=== PATIENT | male | born 2000 ===

== ENCOUNTER 2024-05-26 13:08 | Emergency (ER) | payer MEDICAID, SELFPAY ==
--- NOTE | ~2024-05-26 | XR_ITS ---
EXAMINATION: XR CHEST 2 VIEWS CLINICAL INFORMATION: cough COMPARISON: No prior chest x-ray available in our system for comparison at the time of this dictation. TECHNIQUE: XR CHEST 2 VIEWS, 2 Views Lungs and Henny: Both lungs are clear. Pleura: Normal. Costophrenic angles are sharp. No pneumothorax. Heart and mediastinum: The heart is normal in size. Bones and soft tissue: No acute changes XR/XR chest 2V IMPRESSION: No radiographic evidence of acute cardiopulmonary disease. Electronically signed by: Lai Sheldon MD 05/26/2024 01:56 PM EST
[2024-05-26 13:27] VITALS: BP 139/64; PULSE 66; RESP 20; TEMP 36.6; O2SAT 99; BMI 28.3
--- NOTE | 2024-05-26 13:27 | ED_ITS ---
HPI - General Adult General Chief complaint: General Medical Stated complaint: not feeling well Time Seen by Provider: 05/26/24 14:03 Source: patient Mode of arrival: ambulatory Limitations: language barrier (Croatian speaking voice interpreting services utilized) History of Present Illness ED Provider: Queenie Lowery NP HPI narrative: Patient is a 23-year-old male who presents emergency department for evaluation of many different complaints. He states that he does not have a primary care doctor he typically only seeks evaluation in an emergency department when necessary. He reports that he experienced a headache while at work yesterday, he is working at a [employer] style facility where he does engage in lifting of the approximately 10-15 minute lb which is new exercise for him. He was evaluated by a nurse at work yesterday when he was experiencing a headache, reportedly his blood pressure was elevated but not certain what this number was. He denies any vision changes, dizziness or lightheadedness, neck pain or neck stiffness. He reports that he went to a local emergency department does not recall the name of which one, he was treated for his headache ?with some medicine? and he was discharged home. He states he has been having an intermittently productive cough and a sore throat over the past few days. Endorses having pain to the back, ?in my kidney area? however when asking he points to different parts of his entire back from the shoulder down to the pelvis on both sides reporting that the pain moves all over. Denies any precipitating injury. He denies dysuria, hematuria, bladder bowel dysfunction, saddle paresthesias, numbness or tingling to the lower extremities. Also he feels as though he has gained approximately 20 kg over the past 4-5 months without changes in his appetite. Denies any nausea vomiting abdominal pain. Related Data Allergies Allergy/AdvReac Type Severity Reaction Status Date / Time No Known Allergies Allergy Verified 05/26/24 13:34 Review of Systems 2 Review of Systems: Yes all other systems are reviewed and are negative PMFSH Past Medical History Attestation statement: The following information was validated with the patient. Source: old records reviewed Social History Social History Advance Directives: No Advance Directives Information Provided: Yes Do you have a plan to hurt others: No Plan Physical Exam ED Vital Signs: Vital Signs - 24 hr 05/26/24 13:27 05/26/24 16:08 05/26/24 16:24 Temperature 97.9 F 96.9 F 96.9 F Pulse Rate 66 54 54 Respiratory Rate 20 16 16 Blood Pressure 139/64 115/43 L 115/43 L Pulse Oximetry 99 100 100 Oxygen Delivery Method Room Air Room Air Room Air BMI result Body Mass Index 28.3 Appearance: Alert.?Oriented to person, place and time. No acute distress.?Normal affect. Eyes: Pupils equal, round and reactive to light.? EOMI. No nystagmus. ENT: Pharynx normal.? TM normal bilaterally. ? Neck: Normal inspection.? Neck supple.??Full range of motion. No nuchal rigidity. No cervical adenopathy. CVS: Heart sounds normal. Normal heart rate and rhythm.? Pulses normal.?? Respiratory: No respiratory distress.? Lung sounds clear to auscultation bilaterally?? Abdomen: Soft and non-tender. Normoactive bowel sounds. No CVAT. Back: Currently asymptomatic without back pain, no point tenderness, no paraspinal muscle tenderness. Skin: Skin warm and dry.? Normal skin color.? ?? Extremities: No lower extremity edema.? No calf ttp? Neuro: Moves all extremities spontaneously. Sensation intact bilaterally. CN II- XII intact. No focal neuro deficits. Ambulates with normal steady gait. Course Course Course Narrative: This is a Rapid Medical Examination (RME) performed by Denilson Hurley PA-C in triage. Full HPI, ROS, assessment and treatment plan per primary provider in the Main ED. 23 yo Croatian speaking male here with multiple complaints. reports RIBEIRO at work yesterday - states he was seen by the nurse at work who noted elevated BP. he was seen at a different hospital last night, was treated for his RIBEIRO, and discharged home. endorses productive cough and sore throat. also admits to low back pain in my kidney area , worse with sitting. no saddle anesthesia, bowel/ bladder incontinence or retention, numbness/tingling/weakness of the LE. no chest pain, sob, vision changes. Plan: labs, viral swabs, UA, further evaluation Medications Administered Discontinued Medications Generic Name Dose Route Start Last Admin Trade Name Freq PRN Reason Stop Dose Admin Acetaminophen 975 mg 05/26/24 15:19 05/26/24 15:28 Acetaminophen 325 Mg Tablet PO 05/26/24 15:20 975 mg ONCE ONE Administration Ibuprofen 600 mg 05/26/24 15:19 05/26/24 15:28 Ibuprofen 600 Mg Tablet PO 05/26/24 15:20 600 mg ONCE ONE Administration Medical Decision Making Medical Decision Making [facility] Narrative: Patient is a 23-year-old male with no reported past medical history presenting to emergency department for evaluation of numerous complaints as per HPI. Most recently has been experiencing a headache, cough, sore throat as per HPI, reported elevated blood pressure reading while at work yesterday though no evidence of this here. He has no focal neurological deficits on examination. Clinically have low suspicion for ICH, CVA, is not hypertensive now, would defer CT imaging of the brain at this time. LS CTA, no respiratory distress, no hypoxia tachypnea, dry nonproductive cough will obtain CXR to evaluate for consolidation/infiltrate/mass. 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 You also expressed concern about intermittent back pain, upon his description varies at different locations of his back currently without any symptoms no point tenderness no obvious precipitating trauma on exam no concern for cauda equina syndrome. Did discuss with patient this may be musculoskeletal in nature as he is doing lifting and activity at work that his body is not typically use do. He also reports concern about weight gain of approximately 20 kg over the past 4-5 months, is not on any new medications that may have brought this on, on examination does not appear to have obvious signs of fluid retention/edema or overload. He denies overt dietary changes. He has had many ailments that he describes over the past 10 years which he has not sought evaluation for does not have a primary care doctor, did discuss with him the importance of establishing care with a primary care doctor locally for further evaluation and workup of ongoing concerns. Will obtain CBC to evaluate for leukocytosis/ anemia, CMP and lipase to evaluate for abnormal electrolytes /abnormal renal function/ abnormal hepatic/biliary function, TSH and free T4 to evaluate for abnormal thyroid function, viral serologies, and Urinalysis. Differential Diagnosis Differential Diagnoses: The differential diagnosis associated with the presentation includes Admission/Observation Consideration of admission/observation: Escalation of care including admission/observation considered Lab Data [facility] Lab Attestation statement: I reviewed the patient's lab results. 05/26/24 14:11 05/26/24 14:11 Labs: Lab Results 11/30/24 11/30/24 Range/Units 14:11 14:57 WBC 6.1 (4.8-10.8) X10*3/uL RBC 4.60 (4.60-5.80) X10*6/uL Hgb 14.2 (14.0-18.0) g/dl Hct 43.9 (42.0-52.0) % MCV 95.4 (80.0-98.0) fL MCH 30.9 (27.0-33.0) pg MCHC 32.3 (31.0-36.0) g/dl RDW 11.9 (11.0-16.0) % Plt Count 319 (160-400) X10*3/uL MPV 8.9 L (9.4-12.4) fL Immature Gran % (Auto) 0.5 H (0.0-0.4) % Neut % (Auto) 54.7 (45-73) % Lymph % (Auto) 33.9 (20-40) % [place] % (Auto) 6.5 (2-11) % Eos % (Auto) 4.1 H (0-4) % Baso % (Auto) 0.3 (0-2) % Lymph # (Auto) 2.1 (1.2-4.9) X10*3/uL Randolph # (Auto) 0.4 (0.1-1.2) X10*3/uL Eos # (Auto) 0.3 (0.0-0.4) X10*3/uL Baso # (Auto) 0.0 (0.0-0.2) X10*3/uL Abs Immat Gran (auto) 0.03 (0.00-0.03) X10*3/uL Absolute Neuts (auto) 3.4 (2.0-8.3) x10*3/uL Absolute Nucleated RBC 0.000 (0.0-0.012) X10*3/uL Nucleated RBC % (auto) 0.0 (0.0-0.2) /100WBC Sodium 143 (135-145) mmol/L Potassium 4.1 (3.3-5.1) mmol/L Chloride 109 H (96-108) mmol/L Carbon Dioxide 25 (22-29) mmol/L Anion Gap 13 (12-20) BUN 16 (9-16) mg/dL Creatinine 0.97 (0.5-1.4) mg/dL Estim Creat Clear Calc 143.7 Estimated GFR > 60 Random Glucose 101 (60-115) mg/dL Calcium 9.4 (8.4-10.2) mg/dL Magnesium 2.0 (1.6-2.6) mg/dL Total Bilirubin 0.3 (0.0-1.0) mg/dL AST 18 (5-37) U/L ALT 15 (0-40) U/L Alkaline Phosphatase 125 H (39-117) U/L Total Protein 7.0 (6.5-8.0) g/dL Albumin 4.1 (3.5-5.0) g/dL TSH 0.71 (0.32-4.0) uIU/mL Urine Color Yellow Urine Appearance Clear Urine pH 7.0 (5.0-9.0) Ur Specific [place] 1.025 (1.005-1.025) Urine Protein Negative (Neg-Trace) mg/dL Urine Glucose (UA) Negative (Negative) mg/dL Urine Ketones Negative (Negative) mg/dL Urine Blood Negative (Negative) Urine Nitrite Negative (Negative) Ur Leukocyte Esterase Negative (Negative) Influenza Type A (PCR) NEGATIVE (Negative) Influenza Type B (PCR) NEGATIVE (Negative) RSV RNA Qual (PCR) NEGATIVE (Negative) SARS-CoV-2 RNA (RT-PCR) NEGATIVE (Negative) S. pyogenes GrpA NIMO Negative (Negative) Independent Interpretation I performed an independent interpretation of an: Plain X-Ray (Chest x-ray without consolidation or infiltrate) Radiology Impression Discussion of test interpretation with radiology: I have reviewed the radiologist's reading. Radiologist Impression: XR/XR chest 2V IMPRESSION: No radiographic evidence of acute cardiopulmonary disease. Tests considered The following testing was considered but not selected: See narrative above Discharge Plan Discharge Clinical Impression: Acute viral syndrome Patient Disposition: Home, Self-Care Instructions: Viral Syndrome (ED) Additional Instructions: Your most recent symptoms of cough, sore throat, congestion, headache and body aches are likely due to a viral type infection. The treatment for this is symptomatic treatment. Antibiotics will not improve these symptoms. Be sure to rest, stay well hydrated drinking plenty of fluids, eat small frequent meals. You can take ibuprofen 200 mg, 3 tablets (600mg) every 6-8 hours as needed for pain, in addition to Tylenol 500 mg, 2 tablets (1,000mg) every 4-6 hours as needed for pain, but not to exceed 3 doses daily (3,000mg).? [id number] cold medications may be helpful as well for symptoms. Saline nasal spray, humidifier may be helpful for nasal congestion. You had blood work done today which was very reassuring, he has not have an elevated white blood cell count which is a marker use for certain types of infection, you are not anemic, your electrolytes were normal, your kidney function is normal, your liver function is normal, your thyroid function is normal, your urine does not show evidence of infection. You expressed concern about many ongoing chronic ailments during your visit today, I highly recommend that you establish care with a primary care doctor for further outpatient workup and evaluation. You may return to the emergency department with any new or worsening symptoms or concerns. Stand Alone Forms: Work/School Release Interventions: ED Discharge Assessment Last Done: 05/26/24 16:24 Discharge Date/Time: 05/26/24 16:25 Print Language: Croatian
[2024-05-26 14:20] LABS: MANUAL DIFF FLAG NO
[2024-05-26 14:23] LABS: Basophils Percent Auto 0.3 % (0-2); Eosinophils Absolute Auto 0.3 X10*3/uL (0.0-0.4); Eosinophils Percent Auto 4.1 % (0-4); Hematocrit 43.9 % (42.0-52.0); Hemoglobin 14.2 g/dl (14.0-18.0); Imm Gran Abs Auto 0.03 X10*3/uL (0.00-0.03); Imm Gran Pct Auto 0.5 % (0.0-0.4); Lymphocytes Absolute Auto 2.1 X10*3/uL (1.2-4.9); Lymphocytes Percent Auto 33.9 % (20-40); Mean Corpuscular HGB Conc 32.3 g/dl (31.0-36.0); Mean Corpuscular Hemoglobin 30.9 pg (27.0-33.0); Mean Corpuscular Volume 95.4 fL (80.0-98.0); Mean Platelet Volume 8.9 fL (9.4-12.4); Monocytes Absolute Auto 0.4 X10*3/uL (0.1-1.2); Monocytes Percent Auto 6.5 % (2-11); Neutrophils Absolute Auto 3.4 x10*3/uL (2.0-8.3); Neutrophils Percent Auto 54.7 % (45-73); Platelet Count 319 X10*3/uL (160-400); Red Cell Distribution Width 11.9 % (11.0-16.0); White Blood Count 6.1 X10*3/uL (4.8-10.8)
[2024-05-26 14:30] LABS: IDNOW Serial# 08D9AD1C; Strep A Nucleic Acid Negative (Negative)
[2024-05-26 14:35] LABS: Alanine Aminotransferase 15 U/L (0-40); Albumin Level 4.1 g/dL (3.5-5.0); Alkaline Phosphatase 125 U/L (39-117); Anion Gap 13 (12-20); Aspartate Amino Transferase 18 U/L (5-37); Bilirubin Total 0.3 mg/dL (0.0-1.0); Blood Urea Nitrogen 16 mg/dL (9-16); Calcium 9.4 mg/dL (8.4-10.2); Carbon Dioxide 25 mmol/L (22-29); Chloride 109 mmol/L (96-108); Creatinine Clr Calc Pharmacy 143.7; Estimated Glomerular Filt Rate > 60; Glucose Random 101 mg/dL (60-115); Potassium 4.1 mmol/L (3.3-5.1); Sodium 143 mmol/L (135-145)
[2024-05-26 15:04] LABS: Appearance Urine Clear; Color Urine Yellow; Glucose Urine UA Negative (Negative); Leukocyte Esterase Urine Negative (Negative); Nitrite Urine Negative (Negative); Specific Gravity - Urine 1.025 (1.005-1.025); Urine Blood Negative (Negative); Urine Ketones Negative (Negative); Urine Protein Negative (Neg-Trace)
[2024-05-26 15:05] LABS: Influenza A PCR NEGATIVE (Negative); Influenza B PCR NEGATIVE (Negative); Resp Syncy Virus RNA Qual PCR NEGATIVE (Negative); SARS COV2 PCR INHOUSE NEGATIVE (Negative)
[2024-05-26 15:28] LABS: TSH reflex Free T4 0.71 uIU/mL (0.32-4.0)
[2024-05-26] MEDS: Acetaminophen 325 MG TABLET 975 MG PO (15:28)
[2024-05-26] MEDS: Ibuprofen 600 MG TABLET PO (15:28)
[2024-05-26 16:08] VITALS: BP 115/43; PULSE 54; RESP 16; TEMP 36.1; O2SAT 100
[2024-05-26 16:24] VITALS: BP 115/43; PULSE 54; RESP 16; TEMP 36.1; O2SAT 100
== END 2024-05-26 16:25 | disposition home or self-care (01) ==
PROVIDERS: Nurse Practitioner Family; Physician Assistant Medical; Emergency Provider Emergency Medicine
DX: B34.9 Viral infection, unspecified (principal); J02.9 Acute pharyngitis, unspecified; Z03.818 Encounter for observation for suspected exposure to other biological agents ruled out; R05.9 Cough, unspecified
CPT/HCPCS: 0241U; 71046; 80053; 81003; 83735; 84443; 85025; 87651; 99283

== ENCOUNTER 2024-06-08 18:19 | Emergency (ER) | payer MEDICAID, SELFPAY ==
--- NOTE | ~2024-06-08 | XR_ITS ---
EXAMINATION: XR HAND/WRIST, RIGHT CLINICAL INFORMATION: pain COMPARISON: None available. TECHNIQUE: PA, lateral, and oblique views of the right hand and wrist. FINDINGS: The bones and soft tissues are normal. No fracture. Alignment is anatomic. Joint spaces are maintained. No erosions or soft tissue calcifications. XR/XR hand wrist RT IMPRESSION: Normal radiographs of the hand and wrist. Electronically signed by: Sean Urena MD 06/08/2024 08:40 PM [facility]
--- NOTE | ~2024-06-08 | XR_ITS ---
EXAMINATION: XR LUMBOSACRAL SPINE CLINICAL INFORMATION: pain COMPARISON: None available. TECHNIQUE: Three views of the lumbosacral spine. FINDINGS: The vertebral bodies and posterior elements are normal. The disc spaces are preserved and the vertebral alignment is normal. The paraspinal soft tissues are normal. XR/XR lumbar spine 2-3V IMPRESSION: Unremarkable examination. Electronically signed by: Sean Urena MD 06/08/2024 08:41 PM [facility]
[2024-06-08 19:22] VITALS: BP 115/78; PULSE 90; RESP 19; TEMP 36.6; O2SAT 98; BMI 27.5
--- NOTE | 2024-06-08 19:28 | ED_ITS ---
HPI - General Adult General Chief complaint: General Medical Stated complaint: ?body function issue on the legs and hands Time Seen by Provider: 06/09/24 01:28 Source: patient Mode of arrival: ambulatory Limitations: no limitations History of Present Illness ED Provider: HPI narrative: Patient comes here for locking up of his right 5th finger which is going on for long time noticed no injury although patient complaining of long time low back pain Related Data Allergies Allergy/AdvReac Type Severity Reaction Status Date / Time No Known Allergies Allergy Verified 06/08/24 19:23 Review of Systems 2 Review of Systems: Yes all other systems are reviewed and are negative [facility], [facility] Social History Social History Advance Directives: No Advance Directives Information Provided: No Do you have a plan to hurt others: No Plan Physical Exam ED Vital Signs: BMI result Body Mass Index 27.5 Appearance: Alert. Oriented X3. No acute distress. ENT: Pharynx normal. Oral Mucosa moist Neck: Normal inspection. Neck supple. CVS: Normal heart rate and rhythm. Pulses normal. Respiratory: No respiratory distress. Equal air entry bilateral, no wheezing/rales/rhonchi Skin: Skin warm and dry. Normal skin color. Normal skin turgor. Extremities: No lower extremity edema. back: Diffuse tenderness no midline tenderness good range of movement SLR negative bilaterally Neuro: Oriented X 3. Extrem Hand/finger images: 2 1. Tenderness at the base of right 5th finger with normal joint moving no swelling neurovascular intact clinically patient has trigger finger Course Course Course Narrative: RME, this is a rapid medical exam performed by Braydon Smith please refer to primary provider for complete H&P- 23-year-old male presents for evaluation of lower back pain and pain to his finger. He reports he has had pain to his right 5th finger and feels as though ?gets stuck. ? He denies any specific injury. He was seen here 2 weeks ago for a headache and had a chest x-ray due to viral symptoms. Plan for x-ray of the right hand and wrist and x-ray. He was quite well appearing Medical Decision Making Medical Decision Making MDM Narrative: Patient with right hand trigger finger advised to follow with orthopedic although does have chronic back pain with not any midline spinal tenderness advised to take ibuprofen Discharge Plan Discharge Clinical Impression: Trigger finger, Back pain Patient Disposition: Home, Self-Care Instructions: Trigger Finger (ED), Chronic Back Pain (DC) Additional Instructions: Care and cautions as advised ibuprofen for pain Stand Alone Forms: Work/School Release Interventions: ED Discharge Assessment Last Done: 06/09/24 02:04 Discharge Date/Time: 06/09/24 02:10 Print Language: Iraqi
[2024-06-09 01:13] VITALS: BP 140/101; PULSE 52; RESP 16; O2SAT 99
[2024-06-09 02:04] VITALS: BP 140/101; PULSE 52; RESP 16; TEMP 36.6; O2SAT 97
== END 2024-06-09 02:10 | disposition home or self-care (01) ==
LOC: HO.ED 06-09 02:19
PROVIDERS: Emergency Provider Internal Medicine
DX: M65.351 Trigger finger, right little finger (principal); M54.50 Low back pain, unspecified
CPT/HCPCS: 72100; 73110; 73130; 99283

== ENCOUNTER 2024-09-05 11:14 | Emergency (ER) | payer MEDICAID, OTHER, SELFPAY ==
[2024-09-05 11:34] VITALS: BP 110/68; PULSE 62; RESP 18; TEMP 36.6; O2SAT 98; BMI 26.7
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
--- NOTE | 2024-09-05 11:38 | ECG_ITS ---
Test Reason : SUBSTANCE ABUSE Blood Pressure : */* mmHG Vent. Rate : 55 BPM Atrial Rate : 55 BPM P-R Int : 144 ms QRS Dur : 78 ms QT Int : 372 ms P-R-T Axes : 70 25 19 degrees QTcB Int : 355 ms Sinus bradycardia Otherwise normal ECG No previous ECGs available Referred By: Kashif Smith Electronically Signed By: KYLEE MENJIVAR
[2024-09-05 11:56] VITALS: RESP 16
[2024-09-05 13:00] LABS: Appearance Urine Clear; Color Urine Yellow; Glucose Urine UA Negative (Negative); Leukocyte Esterase Urine Negative (Negative); Nitrite Urine Negative (Negative); Urine Blood Negative (Negative); Urine Ketones Negative (Negative); Urine Protein Negative (Neg-Trace)
[2024-09-05 13:11] LABS: Amphetamine Screen Urine Not Detected (Not Detect); Barbiturates, Urine Not Detected (Not Detect); Benzodiazepines Screen Urine Not Detected (Not Detect); Buprenorphine Scr Not Detected (Not Detect); Cannabinoid Screen Urine POSITIVE (Not Detect); Cocaine Screen Urine Not Detected (Not Detect); Fentanyl, urine Not Detected (Not Detect); Methadone Screen, Urine Not Detected (Not Detect); Opiate Screen Urine Not Detected (Not Detect); Oxycodone Screen Urine Not Detected (Not Detect); Phencyclidine Screen Urine Not Detected (Not Detect)
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
[2024-09-05 14:00] VITALS: BP 121/63; PULSE 86; RESP 18; TEMP 36.6; O2SAT 99
[2024-09-05 18:34] VITALS: BP 124/84; PULSE 68; RESP 16; TEMP 36.1; O2SAT 97
--- NOTE | 2024-09-06 15:21 | MHC.CARE ---
Patient called the CARE Team and needed to be called back with [place] [employer]. He asked to speak with a doctor because he would like a signed document to be out of work for two months and a certificate stating he should buy a gun to protect himself. Advised patient that he could get a note for missing work yesterday and should reach out to his PCP and employer for extended absences. He said he does not have a PCP and was provided with numbers for [facility] outpatient primary care in [place]. In regards to his second request, patient was told that an MD would not encourage him to buy a gun. Patient did say that he spoke to [facility] today and has another appointment.
== END 2024-09-05 18:37 | disposition home or self-care (01) ==
PROVIDERS: Physician Assistant; Emergency Provider Emergency Medicine Emergency Medical Services
DX: F41.9 Anxiety disorder, unspecified (principal); R00.1 Bradycardia, unspecified; F33.1 Major depressive disorder, recurrent, moderate; Z51.81 Encounter for therapeutic drug level monitoring; F12.90 Cannabis use, unspecified, uncomplicated
CPT/HCPCS: 80307; 81003; 93005; 99284; 99285; S9485

== ENCOUNTER → 2024-09-05 11:38 | Outpatient (BNV) | payer SELFPAY | PROVIDERS: Emergency Provider Emergency Medicine Emergency Medical Services; Visit Provider Internal Medicine | DX: R00.1 Bradycardia, unspecified (principal) | CPT/HCPCS: 93010 ==